=== PATIENT | female | born 1950 | race African-American/Black ===

== ENCOUNTER → 2017-09-28 | Outpatient (CLI) | payer MEDICARE, MEDICAID ==
[~2017-09-28] MED LIST: ASPI-482 PO; GABA-585 PO; LISI1TAB3 PO; METF-620 PO; SIMV10TA3 PO
--- NOTE | 2017-09-28 16:42 | RAD ---
DATE: September 28, 2017 EXAM: DIGITAL SCREEN BILAT W/CAD HISTORY: Routine screening. COMPARISON: September 28, 2016. September 23, 2015. September 21, 2014. TECHNIQUE: 2D digital CC and MLO views of each breast were obtained. This study was interpreted with the benefit of Computerized Aided Detection (CAD). FINDINGS: The breast parenchyma is heterogeneously dense, category C, which may obscure small masses. There is no worrisome mass or area of architectural distortion. There are stable benign axillary lymph nodes. There are no suspicious groupings of microcalcifications IMPRESSION: Stable mammogram with benign findings. BI-RADS CATEGORY: 2 BENIGN FINDING RECOMMENDED FOLLOW-UP: 12M 12 MONTH FOLLOW-UP PQRS compliance statement: Patient information was entered into a reminder system with a target due date for the next mammogram. Mammography is a sensitive method for finding small breast cancers, but it does not detect them all and is not a substitute for careful clinical examination. A negative mammogram does not negate a clinically suspicious finding and should not result in delay in biopsying a clinically suspicious abnormality. "Our facility is accredited by the [employer] Mammography [employer]."
== END | disposition home or self-care (01) ==
LOC: MAMMO 15:05
PROVIDERS: ATTEND Internal Medicine
DX: Z12.31 Encounter for screening mammogram for malignant neoplasm of breast (principal)
CPT/HCPCS: G0202; 77067

== ENCOUNTER → 2018-09-29 | Outpatient (CLI) | payer MEDICARE, MEDICAID ==
[~2018-09-29] MED LIST changes: -METF-620 PO; +METF10007 PO
--- NOTE | 2018-09-29 15:46 | RAD ---
DATE: 09/29/2018 EXAM: MAMMO RONA SCREENING BILATERAL HISTORY: Routine screening. COMPARISON: Previous mammogram from 2017 and 2016. This study was interpreted with the benefit of Computerized Aided Detection (CAD). FINDINGS: Breast Density: SCATTERED The breast parenchyma shows scattered fibroglandular densities. Breast parenchyma level B. The skin and nipples are within normal limits. No suspicious calcifications, spiculated mass or area of architectural distortion. IMPRESSION: No mammographic evidence of malignancy. Stable mammogram. BI-RADS CATEGORY: 2 BENIGN FINDING(S) RECOMMENDED FOLLOW-UP: 12M 12 MONTH FOLLOW-UP PQRS compliance statement: Patient information was entered into a reminder system with a target due date for the next mammogram. Mammography is a sensitive method for finding small breast cancers, but it does not detect them all and is not a substitute for careful clinical examination. A negative mammogram does not negate a clinically suspicious finding and should not result in delay in biopsying a clinically suspicious abnormality. "Our facility is accredited by the [employer]ammography [employer]."
== END | disposition home or self-care (01) ==
LOC: MAMMO 15:47
PROVIDERS: ATTEND Internal Medicine
DX: Z12.31 Encounter for screening mammogram for malignant neoplasm of breast (principal)
CPT/HCPCS: 77063; 77067

== ENCOUNTER → 2019-10-12 | Outpatient (CLI) | payer MEDICARE, MEDICAID ==
[~2019-10-12] MED LIST changes: +LISI1TAB23 PO; -LISI1TAB3 PO; +SIMV10TA15 PO; -SIMV10TA3 PO
--- NOTE | 2019-10-12 16:46 | RAD ---
DATE: 10/12/2019. EXAM: MAMMO RONA SCREENING BILATERAL. HISTORY: Routine mammographic screening. COMPARISON: 09/29/2018. This study was interpreted with the benefit of Computerized Aided Detection (CAD). FINDINGS: Breast Density: SCATTERED The breast parenchyma shows scattered fibroglandular densities. Breast parenchyma level B.. There are no suspicious masses, microcalcifications or architectural distortion. The parenchymal pattern is stable. BI-RADS CATEGORY: 1 NEGATIVE. RECOMMENDED FOLLOW-UP: 12M 12 MONTH FOLLOW-UP. PQRS compliance statement: Patient information was entered into a reminder system with a target due date 10/12/2020 for the next mammogram. Mammography is a sensitive method for finding small breast cancers, but it does not detect them all and is not a substitute for careful clinical examination. A negative mammogram does not negate a clinically suspicious finding and should not result in delay in biopsying a clinically suspicious abnormality. "Our facility is accredited by the [employer] Mammography [employer]."
== END | disposition home or self-care (01) ==
LOC: MAMMO 13:49
PROVIDERS: ATTEND Internal Medicine
DX: Z12.31 Encounter for screening mammogram for malignant neoplasm of breast (principal)
CPT/HCPCS: 77063; 77067

== ENCOUNTER → 2019-10-30 | Day surgery (SDC) | payer MEDICARE, MEDICAID ==
[~2019-10-30] MED LIST changes: +IV RINGERS,LACTATED 1000ML 1,000 ML IV ONE; +LIDOCAINE 2% PF 5 ML VIAL. ONE; +LISI-379 PO; +METF500T PO; +MONT10TA49 PO; +PROPOFOL 20 ML IV ONE; +VENL150C PO; +hydrALAZINE 20 MG/ML VIAL. IVP ONE
--- NOTE | 2019-10-30 14:10 | PDOC4 ---
PROCEDURE Procedure Colonoscopy with biopsies Indication: h/o polyps, FH colon cancer Meds per anesthesia: Findings: SWAPNA normal. --'Scope advanced to cecum. Prep fair. Mucosa normal. Scattered diverticula, sigmoid. --3-4 mm polyp, rectum biopsied off. Small internal hemorrhoids. Otherwise normal. IMP: polyp diverticulosis Hemorrhoids. REC: Await path. Resume home meds, diet. F/u in 2 weeks. Repeat exam in 5 years. HANNAH PATEL MD Oct 30, 2019 14:10
[2019-10-30 14:41] VITALS: BP 112/68
--- NOTE | 2019-10-31 17:07 | PATHOLOGY ---
[facility] Accession Number: [id number] . 01 Material submitted: . rectum - RECTAL POLYP . 01 Clinical history: . Screening . 02 Diagnosis: Colorectal biopsy, rectal polyp: - Mixed hyperplastic and adenomatous polyp. . (JPM:carlos; 10/31/2019) QMS 10/31/2019 0849 Local . 02 Comment: There is no high-grade dysplasia or evidence of malignancy. . 02 Electronically signed: . Lionel Maldonado MD, Pathologist NPI- [id number] . 01 Gross description: . Received in formalin labeled "Eloisa Tavares, rectal polyp," is a single segment of lin soft tissue measuring 0.4 cm in maximum dimension. The specimen is entirely submitted in cassette A1. (TSD; 10/30/2019) TOB/TOB 10/30/2019 1743 Local . 02 Pathologist provided ICD-10: D12.8, K62.1 . 02 CPT . 537367 Specimen Comment: A courtesy copy of this report has been sent to [phone], [phone] Specimen Comment: [id number] Specimen Comment: Report sent to / DR CHATMAN Performed at: 01 [facility] [address], [place] [id number] MD Dennis Harvey MD Phone: [phone] Performed at: 02 [facility] [address] [place], [place] [id number] MD Lionel Maldonado MD Phone: [phone]
== END | disposition home or self-care (01) ==
LOC: ENDOS 13:12
PROVIDERS: ATTEND Internal Medicine Gastroenterology
DX: Z12.11 Encounter for screening for malignant neoplasm of colon (principal); D12.8 Benign neoplasm of rectum; K64.0 First degree hemorrhoids; K57.30 Diverticulosis of large intestine without perforation or abscess without bleeding; K63.89 Other specified diseases of intestine; E78.5 Hyperlipidemia, unspecified; F41.9 Anxiety disorder, unspecified; F32.9 Major depressive disorder, single episode, unspecified; I10 Essential (primary) hypertension; K76.0 Fatty (change of) liver, not elsewhere classified; E11.40 Type 2 diabetes mellitus with diabetic neuropathy, unspecified; Z79.899 Other long term (current) drug therapy; Z86.010 Personal history of colon polyps; Z80.0 Family history of malignant neoplasm of digestive organs; Z88.6 Allergy status to analgesic agent; Z88.8 Allergy status to other drugs, medicaments and biological substances; Z86.73 Personal history of transient ischemic attack (TIA), and cerebral infarction without residual deficits; Z90.710 Acquired absence of both cervix and uterus; Z98.51 Tubal ligation status; Z98.890 Other specified postprocedural states; Z88.1 Allergy status to other antibiotic agents; Z79.82 Long term (current) use of aspirin
CPT/HCPCS: 45380; 88305; J0360; J2001; J2704

== ENCOUNTER → 2020-10-09 | Outpatient (CLI) | payer MEDICARE, MEDICAID ==
[2019-10-30 14:41] VITALS: BP 112/68
[~2020-10-09] MED LIST changes: -IV RINGERS,LACTATED 1000ML 1,000 ML IV ONE; -LIDOCAINE 2% PF 5 ML VIAL. ONE; -PROPOFOL 20 ML IV ONE; -hydrALAZINE 20 MG/ML VIAL. IVP ONE
--- NOTE | 2020-10-16 09:52 | RAD ---
DATE: 10/09/2020 2:43 PM EXAM: MAMMO RONA SCREENING BILATERAL HISTORY: Screening COMPARISON: 10/12/2019 Bilateral CC and MLO views of the breasts were performed. Bilateral breast tomosynthesis was performed in CC and MLO projections. This study was interpreted with the benefit of Computerized Aided Detection (CAD). FINDINGS: Breast Density: SCATTERED The breast parenchyma shows scattered fibroglandular densities. Breast parenchyma level B No suspicious masses, microcalcifications or architectural distortion is present to suggest malignancy in either breast. The visualized axillae are unremarkable. IMPRESSION: No mammographic evidence of malignancy. BI-RADS CATEGORY: 1 NEGATIVE RECOMMENDED FOLLOW-UP: 12M 12 MONTH FOLLOW-UP Annual screening mammography is recommended, unless clinically indicated sooner based on symptoms or change in physical exam. PQRS compliance statement: Patient information was entered into a reminder system with a target due date for the next mammogram. Mammography is a sensitive method for finding small breast cancers, but it does not detect them all and is not a substitute for careful clinical examination. A negative mammogram does not negate a clinically suspicious finding and should not result in delay in biopsying a clinically suspicious abnormality. "Our facility is accredited by the [employer]amm[employer]."
== END ==
LOC: MAMMO 14:37
PROVIDERS: ATTEND Internal Medicine
DX: Z12.31 Encounter for screening mammogram for malignant neoplasm of breast (principal)
CPT/HCPCS: 77063; 77067

== ENCOUNTER → 2021-10-13 | Outpatient (CLI) | payer MEDICARE, MEDICAID ==
[2019-10-30 14:41] VITALS: BP 112/68
[~2021-10-13] MED LIST changes: -LISI1TAB23 PO; +LISI1TAB35 PO
--- NOTE | 2021-10-13 15:36 | RAD ---
DATE: 10/13/2021 EXAM: MG BILAT SCREEN+RONA HISTORY: Screening COMPARISON: 10/09/2020, 10/12/2019, 10/09/2018, 09/28/2017 This study was interpreted with the benefit of Computerized Aided Detection (CAD). Breast Density: SCATTERED The breast parenchyma shows scattered fibroglandular densities. Breast pare nchyma level B. FINDINGS: No suspicious mass, suspicious calcification, or architectural distortion. IMPRESSION: No evidence of malignancy. BI-RADS CATEGORY: 1 NEGATIVE RECOMMENDED FOLLOW-UP: 12M 12 MONTH FOLLOW-UP PQRS compliance statement: Patient information was entered into a reminder system with a target due d ate for the next mammogram. Mammography is a sensitive method for finding small breast cancers, but it does not detect them all a nd is not a substitute for careful clinical examination. A negative mammogram does not negate a clin ically suspicious finding and should not result in delay in biopsying a clinically suspicious abnorma lity. "Our facility is accredited by the [employer] Mammography [employer]." Electronically signed by: Mana Leal MD (10/13/2021 3:34 PM) [id number]
== END ==
LOC: MAMMO 14:53
PROVIDERS: ATTEND Internal Medicine
DX: Z12.31 Encounter for screening mammogram for malignant neoplasm of breast (principal)
CPT/HCPCS: 77063; 77067